=== PATIENT | male | born 1945 | race Caucasian/White ===

== ENCOUNTER 2018-12-17 16:25 | Emergency (ER) | payer MEDICARE ==
[2018-12-17 16:46] VITALS: BP 147/76
[2018-12-17] MEDS ORDERED: Acetaminophen TAB* 325 MG PO ONE (16:49)
[2018-12-17 17:14] LABS: Influenza A Molecular NEGATIVE (Negative); Influenza B Molecular NEGATIVE (Negative)
--- NOTE | 2018-12-17 17:25 | UC ---
FLU HPI - HPI Summary HPI Summary: 73 yo male presents with body aches, dry cough, and fever that began early this morning. He was feeling well yesterday and symptoms began suddenly. Has not taken anything OTC for his symptoms. Denies sick contacts. Feels well otherwise. Eating and drinking well. Denies sinus symptoms, sore throat, SOB, chest pain, abdominal pain, n/v/d/c, dysuria, rash. - History of Current Complaint Chief Complaint: UCRespiratory Stated Complaint: FEVER, ACHES, AND CONGESTION Time Seen by Provider: 12/17/18 17:25 Hx Obtained From: Patient Onset/Duration: Sudden Onset Severity Currently: Mild Severity Initially: Mild Pain Intensity: 4 Pain Scale Used: 0-10 Numeric - Allergy/Home Medications Allergies/Adverse Reactions: Allergies Allergy/AdvReac Type Severity Reaction Status Date / Time No Known Allergies Allergy Verified 11/16/18 09:40 PMH/Surg Hx/FS Hx/Imm Hx - Additional Past Medical History Additional PMH: Parkinson's Endocrine History: Dyslipidemia Cardiovascular History: Cardiac Disease, Hypertension - Surgical History Surgical History: Yes Surgery Procedure, Year, and Place: cardiac stents 3 years ago. appy - Family History Known Family History: Positive: Cardiac Disease - Social History Occupation: Retired Lives: With Family Alcohol Use: Daily Substance Use Type: None Smoking Status (MU): Former Smoker Type: Cigars Have You Smoked in the Last Year: No When Did the Patient Quit Smoking/Using Tobacco: 2013 Review of Systems All Other Systems Reviewed And Are Negative: Yes Constitutional: Positive: Fever, Other - Body aches Skin: Positive: Negative Eyes: Positive: Negative ENT: Positive: Negative Respiratory: Positive: Cough Cardiovascular: Positive: Negative Gastrointestinal: Positive: Negative Genitourinary: Positive: Negative Neurovascular: Positive: Negative Neurological: Positive: Negative Psychological: Positive: Negative Physical Exam - Summary Physical Exam Summary: GENERAL: NAD. WDWN. No pain distress. SKIN: No rashes, sores, lesions, or open wounds. HEENT: Head: AT/NC Eyes: EOM intact. Conjunctiva clear without inflammation or discharge. Ears: Hearing grossly normal. TMs intact, no bulging, erythema, or edema. Nose: Nasal mucosa pink and moist. NTTP maxillary and frontal sinus. Throat: Posterior oropharynx without exudates, erythema, or tonsillar enlargement. Uvula midline. NECK: Supple. Nontender. No lymphadenopathy. CHEST: CTAB. No r/r/w. No accessory muscle use. Breathing comfortably and in no distress. CV: RRR. Pulses intact. Cap refill <2seconds ABDOMEN: Soft. NTTP. No distention or guarding. No CVA tenderness. Bowel sounds present NEURO: Alert. PSYCH: Age appropriate behavior. Triage Information Reviewed: Yes Vital Signs: Initial Vital Signs Temp 102.1 F 12/17/18 16:42 Pulse 69 12/17/18 16:42 Resp 18 12/17/18 16:42 BP 147/76 12/17/18 16:42 Pulse Ox 98 12/17/18 16:42 Laboratory Tests 12/17/18 12/17/18 17:02 18:06 POC Urine Color Yellow POC Urine Clarity Clear POC Urine pH 7.0 POC Ur Specif [place] 1.015 POC Urine Protein 1+ A POC Ur Glucose (UA) Negative POC Urine Ketones Negative POC Urine Blood Negative POC Urine Nitrite Negative POC Urine Bilirubin Negative POC Urine Urobilinogen 1.0 POC U Leukocyte Esteras Negative Influenza A (Rapid) Negative Influenza B (Rapid) Negative Vital Signs Reviewed: Yes Flu Course/Dx - Course Course Of Treatment: CXR: IMPRESSION: NO ACTIVE CARDIOPULMONARY DISEASE. POC flu negative. UA negative. POC glucose 105. Pt was given 975mg of tylenol in the clinic and temperature reduced to 100.6F. He felt better after fever reduction. Discussed normal results and exam today with pt. I am unsure the cause of his symptoms. It is possible he is having a viral flu-like illness. Will draw for CBC and CMP and advised to continue tylenol for his fever and drink plenty of fluids. Strongly advised to f/u with his PCP later this week for a recheck of his symptoms. If symptoms worsen to go to the ED. - Differential Dx/Diagnosis Provider Diagnosis: Fever, Body aches Discharge - Sign-Out/Discharge Documenting (check all that apply): Patient Departure All imaging exams completed and their final reports reviewed: No Studies - Discharge Plan Condition: Stable Disposition: HOME Patient Education Materials: Fever in Adults (ED) Referrals: Hector Goldstein MD [Primary Care Provider] - 2 Days Additional Instructions: If you develop a fever, shortness of breath, chest pain, new or worsening symptoms - please call your PCP or go to the ED. Your blood pressure was high at todays visit. Please see your primary provider within 4 weeks for recheck and re-evaluation. 1) Your chest x-ray, urine sample, and flu test were all negative and normal today. We have drawn for labwork today for further evaluation. 2) I am unsure the cause of your fever and body aches, but this could be a flu- like viral illness that will improve in a few days. --- Please take tylenol as directed for your fever and discomfort. Reducing the fever will make you feel better. 3) I recommend that you schedule a follow up with your Primary Doctor later this week for a recheck - Billing Disposition and Condition Condition: STABLE Disposition: Home
[2018-12-18 11:43] LABS: ABS Basophils 0.1 10^3/ul (0-0.2); ABS Eosinophils 0.1 10^3/ul (0-0.6); ABS Lymphocytes 0.4 10^3/ul (1.0-4.8); ABS Monocytes 0.5 10^3/ul (0-0.8); ABS Neutrophils 3.8 10^3/ul (1.5-7.7); ABS Nucleated RBC 0 10^3/ul; Calcium 8.7 mg/dL (8.6-10.3); Eosinophil % 2.1 %; Hematocrit 42 % (36-46); Hemoglobin 14.3 g/dL (14.0-18.0); Lymphocyte % 8.9 %; Mean Corpuscular HGB Conc 35 g/dL (31-36); Mean Corpuscular Hemoglobin 33 pg (27-31); Mean Corpuscular Volume 94 fL (80-94); Mean Platelet Volume 9.4 fL (7.4-10.4); Nucleated Red Blood Cells % 0.1; Platelet Count 103 10^3/uL (150-450); Potassium 3.9 mmol/L (3.5-5.0); Red Blood Count 4.41 10^6 /uL (4.18-5.48); Red Cell Distribution Width 13 % (10.5-15); Total Bilirubin 0.9 mg/dL (0.2-1.0); White Blood Count 4.9 10^3/uL (3.5-10.8)
[2018-12-18 11:49] LABS: Albumin/Globulin Ratio 1.9 (1-3); EGFR African American 88.1 (>60); EGFR Non-African American 72.8 (>60); Globulin 2.1 g/dL (2-4); Total Protein 6.1 g/dL (6.4-8.9)
--- NOTE | 2018-12-18 20:34 | UC ---
- Progress Note Progress Note: Reviewed results of CBC and CMP drawn on 12/17/2018. Normal except for a mildly decreased platelet count. No change in plan of care. Patient should follow up with PCP later this week as previously directed. RN to notify patient of results. Course/Dx - Diagnoses Provider Diagnoses: Fever, Body aches Discharge - Sign-Out/Discharge Documenting (check all that apply): Post-Discharge Follow Up All imaging exams completed and their final reports reviewed: No Studies - Discharge Plan Condition: Stable Disposition: HOME Patient Education Materials: Fever in Adults (ED) Referrals: Hector Goldstein MD [Primary Care Provider] - 2 Days Additional Instructions: If you develop a fever, shortness of breath, chest pain, new or worsening symptoms - please call your PCP or go to the ED. Your blood pressure was high at todays visit. Please see your primary provider within 4 weeks for recheck and re-evaluation. 1) Your chest x-ray, urine sample, and flu test were all negative and normal today. We have drawn for labwork today for further evaluation. 2) I am unsure the cause of your fever and body aches, but this could be a flu- like viral illness that will improve in a few days. --- Please take tylenol as directed for your fever and discomfort. Reducing the fever will make you feel better. 3) I recommend that you schedule a follow up with your Primary Doctor later this week for a recheck - Billing Disposition and Condition Condition: STABLE Disposition: Home
== END 2018-12-17 18:20 | disposition home or self-care (01) ==
LOC: UCEAST 16:25
DX: R50.9 Fever, unspecified (principal); R52 Pain, unspecified; Z87.891 Personal history of nicotine dependence; I10 Essential (primary) hypertension
CPT/HCPCS: 36415; 71046; 80053; 81003; 85025; 99212; A9270-GY; G0463